=== PATIENT | female | born 1970 | race Caucasian/White ===

== ENCOUNTER → 2023-06-21 | Outpatient (CLI) | payer BC, SELFPAY ==
[2023-06-21 11:23] LABS: AST(SGOT) 24 U/L (15-37); Alanine Aminotransfer ALT/SGPT 50 U/L (13-56); Albumin, Serum 3.5 g/dL (3.2-5.0); Alkaline Phosphatase 112 U/L (45-117); Anion Gap 3 (5-15); BUN 8 mg/dL (7-18); BUN/Creat Ratio 12.1 RATIO (10-20); Calcium,Total 8.7 mg/dL (8.5-10.1); Chloride 104 mmol/L (98-107); Cholesterol 160 mg/dL (200); Creatinine, Serum 0.66 mg/dL (0.55-1.02); EST Glomerular Filtration Rate 99 mL/min (>60); Est Glom Filt Rate - Afr Amer 120 mL/min (>60); Globulin 3.6 g/dL (2.2-4.2); Glucose 85 mg/dL (74-106); High Density Lipoprotein 69 mg/dL; Potassium 4.4 mmol/L (3.5-5.1); Protein, Total 7.1 g/dL (6.4-8.2); Sodium Level 135 mmol/L (136-145); Triglycerides 43 mg/dL; Very Low Density Lipoprotein 9 mg/dL (5-40)
== END | disposition home or self-care (01) ==
PROVIDERS: PCP Family Medicine; Referring Provider Family Medicine; Visit Provider Family Medicine
DX: Z00.00 Encounter for general adult medical examination without abnormal findings (principal); Z13.220 Encounter for screening for lipoid disorders; Z13.1 Encounter for screening for diabetes mellitus
CPT/HCPCS: 36415; 80053; 80061

== ENCOUNTER → 2023-10-13 | Outpatient (CLI) | payer BC, SELFPAY ==
--- NOTE | 2023-10-13 14:20 | RAD_ITS ---
EXAM: XR BILATERAL KNEES COMPLETE, 4 OR MORE VIEWS CLINICAL INDICATION: BILATERAL KNEE PAIN TECHNIQUE: Four or more views of the bilateral knees. COMPARISON: No relevant prior studies available. FINDINGS: BONES/JOINTS: Bilateral patellofemoral joint arthrosis. No acute fracture. No subluxation. Normal alignment. No sclerotic or destructive changes observed. SOFT TISSUES: No significant abnormality. No soft tissue swelling or gas. No radiopaque foreign body. RAD/Knee 4 or More Views IMPRESSION: Bilateral patellofemoral joint arthrosis. No acute osseous abnormalities. Electronically Signed: Woody Francis DO at 21:32 EST ,
--- NOTE | 2023-10-13 14:25 | RAD_ITS ---
EXAM: XR LEFT ELBOW COMPLETE, 3 OR MORE VIEWS CLINICAL INDICATION: LEFT ELBOW PAIN TECHNIQUE: Frontal, lateral and oblique views of the left elbow. COMPARISON: No relevant prior studies available. FINDINGS: BONES/JOINTS: No significant abnormality. There is no displacement of the anterior or posterior fat pads. No acute fracture. No subluxation. Normal alignment. Preservation of the joint space. No destructive or sclerotic lesions. SOFT TISSUES: No significant abnormality. No soft tissue swelling or gas. No radiopaque foreign body. RAD/Elbow min 3 Views IMPRESSION: Negative left elbow. Electronically Signed: Woody Francis DO at 21:19 EST ,
--- NOTE | 2023-10-13 14:31 | RAD_ITS ---
EXAM: XR BILATERAL KNEES COMPLETE, 4 OR MORE VIEWS CLINICAL INDICATION: BILATERAL KNEE PAIN TECHNIQUE: Four or more views of the bilateral knees. COMPARISON: No relevant prior studies available. FINDINGS: BONES/JOINTS: Bilateral patellofemoral joint arthrosis. No acute fracture. No subluxation. Normal alignment. No sclerotic or destructive changes observed. SOFT TISSUES: No significant abnormality. No soft tissue swelling or gas. No radiopaque foreign body. RAD/Knee 4 or More Views IMPRESSION: Bilateral patellofemoral joint arthrosis. No acute osseous abnormalities. Electronically Signed: Woody Francis DO at 21:33 EST ,
== END | disposition home or self-care (01) ==
LOC: MTRAD 14:17
PROVIDERS: PCP Family Medicine; Referring Provider Nurse Practitioner Family; Visit Provider Nurse Practitioner Family
DX: M25.561 Pain in right knee (principal); M25.562 Pain in left knee; M25.522 Pain in left elbow
CPT/HCPCS: 73080; 73564

== ENCOUNTER → 2024-05-31 | Outpatient (CLI) | payer BC, SELFPAY ==
[2024-05-31 12:28] LABS: ALB/GLOB Ratio 1.1 RATIO (0.9-2.4); AST(SGOT) 35 U/L (15-37); Alanine Aminotransfer ALT/SGPT 55 U/L (13-56); Albumin, Serum 3.7 g/dL (3.2-5.0); Alkaline Phosphatase 106 U/L (45-117); Anion Gap 6 (5-15); BUN 8 mg/dL (7-18); BUN/Creat Ratio 10.2 RATIO (10-20); Calcium,Total 8.9 mg/dL (8.5-10.1); Chloride 104 mmol/L (98-107); Cholesterol 158 mg/dL (200); Creatinine, Serum 0.79 mg/dL (0.55-1.02); EST Glomerular Filtration Rate 81 mL/min (>60); Est Glom Filt Rate - Afr Amer 98 mL/min (>60); Globulin 3.4 g/dL (2.2-4.2); Glucose 83 mg/dL (74-106); High Density Lipoprotein 67 mg/dL; Potassium 4.4 mmol/L (3.5-5.1); Protein, Total 7.1 g/dL (6.4-8.2); Sodium Level 135 mmol/L (136-145); Triglycerides 32 mg/dL; Very Low Density Lipoprotein 6 mg/dL (5-40)
== END | disposition home or self-care (01) ==
LOC: BFHLAB 10:30
PROVIDERS: PCP Family Medicine; Referring Provider Family Medicine; Visit Provider Family Medicine
DX: Z00.00 Encounter for general adult medical examination without abnormal findings (principal); Z13.220 Encounter for screening for lipoid disorders; Z13.1 Encounter for screening for diabetes mellitus
CPT/HCPCS: 36415; 80053; 80061; 83036

== ENCOUNTER 2025-02-28 08:35 | Day surgery (SDC) | payer BC, SELFPAY ==
[2025-02-28] VITALS (9 sets, daily range): BP systolic 84–102; BP diastolic 52–72; PULSE 55–70; RESP 14–17; TEMP 36.1–36.4; O2SAT 96–100; BMI 26.5
[2025-02-28 09:07] LABS: Internal QC Validated? YES +Cl - CLEAR BKGD; Pregnancy, Urine Negative Negative
--- NOTE | 2025-02-28 09:10 | PRE.ANES_ITS ---
ASA Classification* ASA Classification ASA Classification: 2 Assessment & Plan Anesthesia* Anesthesia Assessment Anesthesia Assessment: Discussed sedation and/or anesthesia options, risks, benefits, and alternatives with patient/parents/legal guardian/POA. Questions invited. The patient/parents/legal guardian/POA seems to understand and agrees to proceed with anesthesia plan. Reviewed the physical assessment, medical history, allergy history and patient home medications list prior to surgery/procedure/anesthetic and documented any changes. Performed airway and anesthesia risk assessments. Anesthesia Type Anesthesia Type: MAC Anesthesia Focused Assessment* Temperature: 97.6 F Pulse Rate: 62 Blood Pressure: 102/72 Respiratory Rate: 17 Pulse Ox: 96 Airway Assessment Mouth opens: >3 cm Mallampati Score: II Focused Labs Anesthesia Preop lab: CBC CHEMISTRY Potassium 4.4 mmol/L (3.5-5.1) 05/31/24 10:32 05/31/24 Sodium 135 mmol/L (136-145) L 05/31/24 10:32 05/31/24 BUN 8 mg/dL (7-18) 05/31/24 10:32 05/31/24 Creatinine 0.79 mg/dL (0.55-1.02) 05/31/24 10:32 05/31/24 Glucose 83 mg/dL (74-106) 05/31/24 10:32 05/31/24 COAG Urine Test Negative Negative 02/28/25 08:49 02/28/25 Pre-Assessment Diagnosis/Proposed Procedure Planned Operative Procedure(s): Colonoscopy - Open Access Anesthesia History Anesthesia History - chief writer: Anesthesia History - chief writer Hx Hospitalization No 02/23/25 11:54 Any Problems With Anesthesia No 02/23/25 11:54 Cholinesterase deficiency No 02/23/25 11:54 You/Your Family Experience No 02/23/25 11:54 fever (hyperthermia) with Relationship Recent Exposure to Contagious No 02/28/25 09:03 Disease Does patient have nerve No 02/23/25 11:54 stimulator Patient instructed to have device shut off --Does patient have Pacemaker No 02/28/25 09:03 or ICD? When Was Last Pacemaker Check QUESTION #4 FULL TEXT: You/Your Family Experience fever (hyperthermia) with Anesthesia Last Oral Intake Last Oral intake: Last Oral Intake NPO since 05:30 02/28/25 09:03 Meds taken in AM with sips of No 02/28/25 09:03 water? Meds patient instructed to take am of surgery PONV PONV - chief writer: PONV - chief writer Female Yes 02/23/25 11:54 HX of Motion Sickness No 02/23/25 11:54 HX of N/V After Surgery No 02/23/25 11:54 Non-Smoker Yes 02/23/25 11:54 Duration of Surgery greater No 02/23/25 11:54 than 60 minutes Number of Risk Factors 2 02/23/25 11:54 PONV Score Moderate Risk 02/23/25 11:54 Height & Weight Height & Weight: Anesthesia: Height & Weight Height 5 ft 8 in 02/28/25 09:03 Weight: 79.2 kg 02/28/25 09:03 Body Mass Index (BMI) 26.5 02/28/25 09:03 Respiratory Assessment Respiratory Assessment - chief writer: Respiratory Tract Infection Hx - chief writer Hx Respiratory Tract Infection No 02/23/25 11:54 STOP Sleep Apnea STOP Sleep Apnea - chief writer: STOP Sleep Apnea - chief writer Hx Hypertension No 02/23/25 11:54 Hx Sleep Apnea No 02/23/25 11:54 CPAP BIPAP Do you snore loudly (louder No 02/23/25 11:54 than talking or can be heard Do you often feel tired/ No 02/23/25 11:54 fatigued/ sleepy during daytime? Has anyone observed you stop No 02/23/25 11:54 breathing during sleep? STOP Results Negative 02/23/25 11:54 QUESTION #5 FULL TEXT : Do you snore loudly (louder than talking or can be heard through closed doors)? 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 Specify any problems Hx of Preganancy in last 3 No 02/23/25 11:54 Months Nurse Filling Out Transfusion VCHRISTIN 02/23/25 11:54 & Questions: Date: 02/23/25 02/23/25 11:54 Time: 11:55 02/23/25 11:54 Patient unable to answer at this time (ie. confused, unrespo /Reproduction History /Reproductive History - chief writer: /Reproductive Hx- chief writer Hx Now No 02/23/25 11:54 Gestational Age (in weeks): EDC: Hx Hx Para Hx Section SAB No 02/23/25 11:54 [facility] Medical History Wears contact lenses Wears glasses Alcohol use Gastric reflux Non-smoker Headache, migraine Depression with anxiety Lupus Family history of colon cancer in father Home Medications ?Medication ?Instructions ?Recorded ?Last Taken ?Type biotin 5 mg tablet 5 mg PO DAILY 07/16/2402/27 History cholecalciferol (vitamin D3) 125 125 mcg PO DAILY 07/0102/27/25 History mcg (5,000 unit) capsule citalopram 20 mg tablet 20 mg PO DAILY 07/16/2401/31 History hydroxychloroquine 200 mg tablet 400 mg PO DAILY 07/1602/27/25 History (Plaquenil) levonorgestrel (Mirena) 1 device intrauterine ONCE 0 07/16/24 02/27/25 History loratadine 10 mg tablet (Claritin) 10 mg PO DAILY 07/0102/27/25 History multivitamin 1 tab PO DAILY 07/16/2401/31 History Allergy/AdvReac Type Severity Reaction Status Date / Time No Known Allergies Allergy Verified 02/28/25 09:03 Family History Father Colon cancer Mother Lung cancer Ovarian cancer Diabetes Brother Colon polyps Skin cancer Diabetes Kidney transplant recipient CVA (cerebral vascular accident) Surgical History History of laparoscopy Hx of colonoscopy Social History household members: spouse and children current occupational status: employed current occupation: [employer] Smoking Status: Never smoker alcohol intake: current alcohol intake frequency: holidays/special occasions only substance use type: does not use Review of Systems (Anesthesia) ROS Narrative System reviewed and no additional complaints, except as documented.
--- NOTE | 2025-02-28 09:31 | H&P.OPEN ---
[facility] - General General Date of Service: 02/28/25 HPI Narrative JG PASCUAL, is a 54 F who presents for screening colonoscopy. Patient last colonoscopy was 6 years ago. Patient's dad was diagnosed with colon cancer metastatic age 55. Patient has bowel movements daily denies any blood. Patient denies any chronic abdominal pain/nausea/vomiting/reflux. [facility] Medical History (Updated 02/28/25 @ 09:[address] Viridiana Serrano MD) Wears contact lenses Wears glasses Alcohol use Gastric reflux Non-smoker Headache, migraine Depression with anxiety Lupus Family history of colon cancer in father Home Medications ?Medication ?Instructions ?Recorded ?Last Taken ?Type biotin 5 mg tablet 5 mg PO DAILY 07/16/24 02/27/25 History cholecalciferol (vitamin D3) 125 125 mcg PO DAILY 07/16/24 02/27/25 History mcg (5,000 unit) capsule citalopram 20 mg tablet 20 mg PO DAILY 07/16/24 02/27/25 History hydroxychloroquine 200 mg tablet 400 mg PO DAILY 07/16/24 02/27/25 History (Plaquenil) levonorgestrel (Mirena) 1 device intrauterine ONCE 07/16/24 02/27/25 History loratadine 10 mg tablet (Claritin) 10 mg PO DAILY 07/16/24 02/27/25 History multivitamin 1 tab PO DAILY 07/16/24 02/27/25 History Allergy/AdvReac Type Severity Reaction Status Date / Time No Known Allergies Allergy Verified 02/28/25 09:03 Family History Father Colon cancer Mother Lung cancer Ovarian cancer Diabetes Brother Colon polyps Skin cancer Diabetes Kidney transplant recipient CVA (cerebral vascular accident) Surgical History History of laparoscopy Hx of colonoscopy Social History household members: spouse and children current occupational status: employed current occupation: [employer] Smoking Status: Never smoker alcohol intake: current alcohol intake frequency: holidays/special occasions only substance use type: does not use Past Medical/Surgical History Planned Operation Planned Operative Procedure(s): Colonoscopy - Open Access Previous Hospitalizations/Surgeries HX Hospitalizations: No Any Problems With Anesthesia: No You/Your Family Experience Fever (Hyperthermia) With Anes: No Cholinesterase deficiency: No Cardiovascular Hx Hypertension: No Respiratory Hx Sleep Apnea: No Hx Respiratory Tract Infection/Cold (presently): No Do You Snore Loudly (louder than talking or can be heard): No Do You Often Feel Tired/ Fatigued/ Sleepy Dring Daytime?: No Has Anyone Observed You Stop Breathing During Sleep?: No Result (for STOP score): Negative Smoking Status: Never smoker Neurological Does patient have nerve stimulator: No Reproduction : No Miscellaneous Recent Exposure to Contagious Disease: No Allergies No Known Allergies Allergy (Verified 02/28/25 09:03) Discharge Is Pt Admitted From a Senior Care, or a Penitentiary: No After D/C, Where Do you Plan to Go: Return Home Vital Signs Vital Signs Vital Signs: 02/28/25 09:03 02/28/25 09:03 02/28/25 09:10 Temperature 97.6 F L 97.6 F L Temperature Source Temporal Pulse Rate 62 62 Respiratory Rate 17 17 Respiratory Pattern Normal Blood Pressure 102/72 102/72 Blood Pressure Mean 82 Blood Pressure Source Monitor Blood Pressure Position Semi-Fowlers Blood Pressure Location Left Arm Pulse Ox 96 96 Oxygen Delivery Method Room Air Weight Weight: 174 lb 9.698 oz Body Mass Index (BMI) 26.5 Physical Exam Const alert, oriented x3 and no apparent distress HEENT normocephalic and head/scalp atraumatic Resp normal respiratory effort Cardio regular rate GI soft to palpation and non-tender; Negative for non-distended Palpation: Negative for guarding Extremity no clubbing, cyanosis or edema Skin no rashes or lesions noted Neuro CN's II-XII intact bilaterally Psych mental status grossly normal Assessment & Plan Assessment/Plan (1) Family history of colon cancer in father: Surgery Risks - Colonoscopy I discussed with the patient the risks of the procedure: Yes Risks Include but are not Limited To: Risks include but are not limited to: Bleeding, perforation requiring further surgery, inability to complete colonoscopy requiring barium enema.
--- NOTE | 2025-02-28 10:34 | OP.CCLET_ITS ---
02/28/2025 Krystin Alfonso [address] [place] [address] Re : Colonoscopy procedure for Angelita Alex Dear Dr. Alfonso This procedure was performed on Friday, February 28, 2025. My impressions and recommendations are as follows: Impressions : - Hemorrhoids found on perianal exam. - The entire examined colon is normal on direct and retroflexion views. - No specimens collected. Recommendations : - Discharge patient to home. - Resume previous diet. - Continue present medications. - Repeat colonoscopy in 5 years for screening purposes. My findings are described in the full procedure note, which is enclosed. If I can be of further assistance, please feel free to contact me at Doctor phone number(s): , Work: . Sincerely, MD Viridiana Araujo MD 02/28/2025 10:33:45 AM This report has been signed electronically.
--- NOTE | 2025-02-28 10:34 | OP.COLON_ITS ---
Patient Name: Angelita Johnson Procedure Date: 02/28/2025 10:04 AM Date of : 1970 Age: 54 Procedure: Colonoscopy Indications: Screening in patient at increased risk: Family history of 1st-degree relative with colorectal cancer before age 60 years Providers: Viridiana Serrano MD Referring MD: Viridiana Serrano MD Medicines: Monitored Anesthesia Care Patient Profile: This is a 54 year old female. Last Colonoscopy: 6 years ago. Complications: No immediate complications. Procedure: Pre-Anesthesia Assessment: - Prior to the procedure, a History and Physical was performed, and patient medications and allergies were reviewed. The patient's tolerance of previous anesthesia was also reviewed. The risks and benefits of the procedure and the sedation options and risks were discussed with the patient. All questions were answered, and informed consent was obtained. Prior Anticoagulants: The patient has taken no anticoagulant or antiplatelet agents. ASA Grade Assessment: Per anesthesia. After reviewing the risks and benefits, the patient was deemed in satisfactory condition to undergo the procedure. After I obtained informed consent, the scope was passed under direct vision. Throughout the procedure, the patient's blood pressure, pulse, and oxygen saturations were monitored continuously. The Colonoscope was introduced through the anus and advanced to the cecum, identified by the appendiceal orifice, ileocecal valve and palpation. The colonoscopy was performed without difficulty. The patient tolerated the procedure well. The quality of the bowel preparation was good. Scope In: 10:05:01 AM Scope Withdrawal Time 0 hours 10 minutes 53 seconds Scope Out: 10:28:54 AM Total Procedure Duration Time 0 hours 23 minutes 53 seconds Findings: Hemorrhoids were found on perianal exam. The entire examined colon appeared normal on direct and retroflexion views. Impression: - Hemorrhoids found on perianal exam. - The entire examined colon is normal on direct and retroflexion views. - No specimens collected. Recommendation: - Discharge patient to home. - Resume previous diet. - Continue present medications. - Repeat colonoscopy in 5 years for screening purposes. Procedure Code(s): --- Professional --- G0105, PT, Colorectal cancer screening; colonoscopy on individual at high risk Diagnosis Code(s): --- Professional --- Z80.0, Family history of malignant neoplasm of digestive organs K64.9, Unspecified hemorrhoids CPT copyright 2021 [employer]. All rights reserved. The codes documented in this report are preliminary and upon glassine machine tender review may be revised to meet current compliance requirements. MD Viridiana Araujo MD 02/28/2025 10:33:45 AM This report has been signed electronically. Number of Addenda: 0 Note Initiated On: 02/28/2025 10:04 AM
--- NOTE | 2025-02-28 10:37 | PCM.POST.ANE ---
Anesthesia: Postop Eval I Current Vital Signs Temperature: 97.1 F Pulse Rate: 70 Blood Pressure: 84/65 Respiratory Rate: 16 Pulse Ox: 98 Oxygen Delivery Method: Room Air Assessment Airway patent: Yes Spontaneous unlabored respirations: Yes Mental status: Asleep nausea: No Vomiting: No Anesthesia Complication: No Fluid Hydration Crystalloid volume administer (ml): 60 Total IV fluid infused: 60 Progress Note Anesthesia document: Postop Eval 1 completed: Yes
--- NOTE | 2025-02-28 10:40 | PCM.POSTANE2 ---
Anesthesia Postop Eval I Sum Postop Eval Completion status Anesthesia document: Postop Eval 1 completed: Yes Anesthesia Postop Eval I Summary Anesthesia Postop Eval I Summary: Anesthesia Postop Eval I: Assessment Summary Airway patent Yes 02/28/25 10:37 [email or web address] Spontaneous unlabored Yes 02/28/25 10:37 [email or web address] respirations Mental status Asleep 02/28/25 10:37 [email or web address] nausea No 02/28/25 10:37 [email or web address] Vomiting No 02/28/25 10:37 [email or web address] Anesthesia Postop Eval I: Fluid Summary Crystalloid volume administer 60 02/28/25 10:37 [email or web address] (ml) Colloids volume administered ( ml) Blood Product volume administered (ml) Total IV fluid infused 60 02/28/25 10:37 [email or web address] Anesthesia Postop Eval I: Summary Notes Anesthesia Complication No 02/28/25 10:37 [email or web address] Anesthesia Complication Comment: Post-operative progress note Anesthesia: Postop Eval II Evaluation Mental status: Awake Pain Level: 0 nausea: No Vomiting: No
== END 2025-02-28 11:18 | disposition home or self-care (01) ==
LOC: EN 08:36 → AC 08:38
PROVIDERS: Anesthesiology; PCP Family Medicine; Referring Provider Family Medicine; Visit Provider Surgery
PROC: 0DJD8ZZ Inspection of Lower Intestinal Tract, Via Natural or Artificial Opening Endoscopic (ICD-10-PCS; CPT 45378; principal; 2025-02-28 09:25)
DX: Z12.11 Encounter for screening for malignant neoplasm of colon (principal); M32.9 Systemic lupus erythematosus, unspecified; K64.9 Unspecified hemorrhoids; F41.8 Other specified anxiety disorders; Z80.0 Family history of malignant neoplasm of digestive organs; Z79.899 Other long term (current) drug therapy
CPT/HCPCS: 45378; 81025; A4216; J2405

== ENCOUNTER → 2025-05-25 | Outpatient (CLI) | payer BC, SELFPAY ==
[2025-05-25 12:51] LABS: Absolute Lymphocyte Count 1.17 X10^3/uL (0.83-4.51); Absolute Neutrophil Count 2.8 X10^3/uL (2.0-7.7); Basophil# 0.04 X10^3/uL; Basophil% 0.9 % (0-1); Hemoglobin 12.6 g/dL (12.0-15.0); Lymphocyte # 1.17 X10^3/ul (0.83-4.51); Lymphocyte % 26.3 % (19-41); Mean Corp Hgb Conc 33.2 g/dL (32-36); Mean Corpuscular Hgb 28.3 pg (27.0-32.0); Mean Corpuscular Volume 85.4 fL (81-99); Mean Platelet Vol. 9.9 fl (6.2-12.0); NRBC Flagged by Analyzer 0 % (0-5); Neutrophil # 2.83 X10^3/uL (2.7-7.7); Neutrophil % 63.6 % (47-70); Platelet Count 279 K/mm3 (150-450); RBC Distribution Width CV 12.7 % (11.6-14.6); RBC Distribution Width SD 39.4 fl (35.1-43.9); Red Blood Count 4.45 M/mm3 (4.2-5.4); White Blood Count 4.5 K/mm3 (4.4-11.0)
[2025-05-25 13:02] LABS: Erythrocyte Sedimentation Rate 3 mm/hr (0-30)
== END | disposition home or self-care (01) ==
LOC: BFHLAB 09:27
PROVIDERS: PCP Family Medicine; Visit Provider Family Medicine
DX: Z00.00 Encounter for general adult medical examination without abnormal findings (principal); Z13.1 Encounter for screening for diabetes mellitus; R53.83 Other fatigue; D64.9 Anemia, unspecified; E55.9 Vitamin D deficiency, unspecified
CPT/HCPCS: 36415; 80053; 82306; 82607; 82728; 83540; 84439; 84443; 84481; 85025; 85652; 86140